=== PATIENT | female | born 1955 | race Caucasian/White ===

== ENCOUNTER → 2025-03-13 | Outpatient (CLI) | payer MEDICARE, BC, SELFPAY ==
--- NOTE | 2025-03-13 14:00 | XR_ITS ---
Examination: Bone densitometry Date and time of exam: March 13, 2025, 1356 hours INDICATIONS: Hysterectomy age 34, smoking history Technique: Lumbar spine and hip total bone mineralization values of an calculated. Peak reference and age match control results have been displayed. Findings: Lumbar spine total bone mineralization is 1.127 gm/cm2. This is 0.7 standard deviations above peak reference. This is 2.9 standard deviations above age-matched controls. Hip total bone mineralization is 0.776 gm/cm2 This is 1.4 standard deviations below peak reference. This is 0.2 standard deviations below age-matched controls Impression: There is normal mineralization based on lumbar spine measurements. There is osteopenia based on hip measurements
== END | disposition home or self-care (01) ==
PROVIDERS: PCP Physician Assistant Medical; Referring Provider Physician Assistant Medical; Visit Provider Physician Assistant Medical
DX: M85.88 Other specified disorders of bone density and structure, other site (principal)
CPT/HCPCS: 77080